=== PATIENT | female | born 1980 | race Caucasian/White ===

== ENCOUNTER → 2021-07-23 10:03 | Outpatient (CLI) | payer OTHER, SELFPAY ==
[2021-07-23 20:43] LABS: SARS-CoV-2 RNA PCR Positive
== END ==
PROVIDERS: PCP Nurse Practitioner Family; Visit Provider Nurse Practitioner Family
DX: U07.1 COVID-19 (principal); R19.7 Diarrhea, unspecified
CPT/HCPCS: C9803; U0003; U0005

== ENCOUNTER 2021-07-27 11:46 | Emergency (ER) | payer OTHER, SELFPAY ==
--- NOTE | ~2021-07-27 | XR_ITS ---
EXAMINATION: XR chest 1V portable DATE: 07/27/2021 15:45 INDICATION: Shortness of breath. TECHNIQUE: A single frontal view of the chest was obtained. COMPARISON: None. FINDINGS: The chest demonstrates clear lungs without pneumonia, pleural effusion, or pneumothorax. Th e heart size is normal. IMPRESSION: 1. No acute cardiopulmonary disease. Reviewed, dictated and finalized at location A. [employer]
[2021-07-27 11:51] VITALS: BP 145/71; PULSE 84; RESP 18; TEMP 36.8; O2SAT 100
[2021-07-27 14:02] VITALS: BP 125/61; PULSE 99; RESP 18; TEMP 37.3; O2SAT 100
[2021-07-27 15:20] VITALS: BP 146/91; PULSE 102; RESP 18; O2SAT 100
--- NOTE | 2021-07-27 15:29 | ECG_ITS ---
Measurements Intervals [place] Rate: 99 P: 46 OR: 96 QRS: 81 QRSD: 106 T: -8 QT: 329 QTc: 422 Interpretive Statements SINUS RHYTHM WITH SHORT OR INTERVAL INCOMPLETE RIGHT BUNDLE BRANCH BLOCK ST-T WAVE ABNORMALITY IN INFERIOR LEADS- CONSIDER ISCHEMIA ABNORMAL ECG Electronically Signed On 07-27-2021 16:11:37 SHOULDER PUNCHER by Hakan Melgar D.O.
[2021-07-27] MEDS: SODIUM CHLORIDE 0.9% IV 1,000 ML 999 ML IV CONT (15:57)
[2021-07-27 16:05] LABS: Basophils Percent Auto 0.3 % (0.2-1.2); Eosinophils Percent Auto 0.1 % (0-4.4); Hematocrit 42.6 % (37.0-47.0); Hemoglobin 14.7 g/dL (12.0-15.0); Immature Granulocyte Absolute 0.03 K/mm3 (0.00-0.031); Immature Granulocyte Percent A 0.3 % (0-0.5); Lymphocytes Absolute Auto 1.94 K/mm3 (0.9-3.2); Mean Corpuscular HGB Conc 34.5 g/dl (32-36); Mean Corpuscular Hemoglobin 31.3 pg (26-34); Mean Corpuscular Volume 90.6 fl (80-100); Mean Platelet Volume 10.2 fl (7.4-10.4); Monocytes Absolute Auto 0.5 K/mm3 (0.1-0.6); Monocytes Percent Auto 4.7 % (2.6-8.5); Neutrophils Absolute Auto 8.2 K/mm3 (1.3-6.7); Neutrophils Percent Auto 76.6 % (45.5-73.1); Platelet Count Result 326 k/mm3 (150-375); Red Cell Distribution Width 11.8 % (11.5-14.5); White Blood Count 10.8 K/mm3 (4.5-10.0)
[2021-07-27 16:16] LABS: Alanine Aminotransferase 20 U/L (4-35); Alkaline Phosphatase 59 U/L (38-126); Anion Gap 14 mmol/L (8-16); Aspartate Amino Transferase 27 U/L (14-36); Bilirubin,Total 0.8 mg/dL (0.2-1.3); Blood Urea Nitrogen 6 mg/dL (7-17); Calcium 10.1 mg/dL (8.4-10.2); Carbon Dioxide 18 mmol/L (22-30); Chloride 104 mmol/L (98-107); Estimated CRCL calculation 80 ml/min; Estimated Glomerular Filt Rate > 60; Glucose 123 mg/dL (65-110); Potassium 3.6 mmol/L (3.4-5.0); Sodium 136 mmol/L (137-145)
[2021-07-27 16:18] LABS: D Dimer 0.47 ug/mL (<0.48)
[2021-07-27 16:27] LABS: Troponin I < 0.012 ng/mL (0.000-0.034)
[2021-07-27] MEDS: KETOROLAC 15 MG/ML VIAL (*BKC) IV PUSH (16:41)
--- NOTE | 2021-07-27 16:44 | ED.GENADULT ---
HPI - General Adult General Chief complaint: Shortness of Breath/Dyspnea Stated complaint: dizzy/sob Time Seen by Provider: 07/27/21 15:30 Source: patient Mode of arrival: ambulatory Limitations: no limitations History of Present Illness HPI narrative: Patient presents with chief complaint of chest pain over the past week. Patient reports that she tested positive for Covid on July 23. Patient reports that she has developed some chest pressure and feelings of shortness of breath with exertion. Patient denies worsening of pain when she takes a deep breath. Patient reports that she has been in contact with her primary care and instructed her to present to the emergency department for evaluation. Patient states that she has been without her taste and smell for a week as well. Patient denies fevers, chills, vomiting. Patient denies history of heart attack or stroke. Patient denies shortness of breath at this time. Related Data Home Medications Medication Instructions Recorded Confirmed No Home Medications 07/27/21 07/27/21 Allergies Allergy/AdvReac Type Severity Reaction Status Date / Time No Known Allergies Allergy Verified 07/27/21 15:20 Review of Systems Review of Systems: CONSTITUTIONAL: Denies fever, chills, or sweats. EYES: Reports loss of taste and smell denies visual changes, redness, or discharge. ENT: Denies rhinorrhea, congestion, sore throat, or otalgia. CARDIOVASCULAR: Reports chest pressure denies palpitations, or edema. RESPIRATORY: Reports cough and dyspnea on exertion GASTROINTESTINAL: Denies abdominal pain, nausea, vomiting, or diarrhea. GENITOURINARY: Denies dysuria or hematuria. SKIN: Denies rash or itching. MUSCULOSKELETAL: Denies back pain, joint pain, or myalgia. NEUROLOGIC: Denies headache, numbness, dizziness, or weakness. PSYCHIATRIC: Denies anxiety or depression. Course Vital Signs Vital signs: Vital Signs Temperature 98.3 F 07/27/21 11:51 Pulse Rate 84 07/27/21 11:51 Respiratory Rate 18 07/27/21 11:51 Blood Pressure 145/71 H 07/27/21 11:51 Pulse Oximetry 100 07/27/21 11:51 Temperature 99.2 F 07/27/21 14:02 Pulse Rate 102 H 07/27/21 15:20 Respiratory Rate 18 07/27/21 15:20 Blood Pressure 146/91 H 07/27/21 15:20 Pulse Oximetry 100 07/27/21 15:20 Medical Decision Making MDM Narrative Medical decision making narrative: Patient has not having any acute changes to her chest pain. Patient given a liter of fluids for hydration. Patient given Toradol to help with discomfort. Patient vitals are stable. Patient not hypoxic or toxic. Patient tested positive presently for Covid. Patient D-dimer is negative. ekg does not show [place]. Patient's troponin are negative. Patient instructed to follow-up with her primary care for further investigations or symptoms. Patient strict to return to emergency department should she develop any emergent symptoms. Vital Signs Vital Signs: Vital Signs Temperature 98.3 F 07/27/21 11:51 Pulse Rate 84 07/27/21 11:51 Respiratory Rate 18 07/27/21 11:51 Blood Pressure 145/71 H 07/27/21 11:51 Pulse Oximetry 100 07/27/21 11:51 Temperature 99.2 F 07/27/21 14:02 Pulse Rate 102 H 07/27/21 15:20 Respiratory Rate 18 07/27/21 15:20 Blood Pressure 146/91 H 07/27/21 15:20 Pulse Oximetry 100 07/27/21 15:20 Lab Data Result diagrams: 07/27/21 15:58 07/27/21 15:58 Labs: Lab Results 07/27/21 07/27/21 07/27/21 Range/Units 15:58 15:58 15:58 WBC 10.8 H (4.5-10.0) K/mm3 RBC 4.70 (4.2-5.4) M/mm3 Hgb 14.7 (12.0-15.0) g/dL Hct 42.6 (37.0-47.0) % MCV 90.6 (80-100) fl MCH 31.3 (26-34) pg MCHC 34.5 (32-36) g/dl RDW 11.8 (11.5-14.5) % Plt Count 326 (150-375) k/mm3 MPV 10.2 (7.4-10.4) fl Immature Gran % (Auto) 0.3 (0-0.5) % Neut % (Auto) 76.6 H (45.5-73.1) % Lymph % (Auto) 18.0 L (18.3-44.2) % [facility] % (Auto)
== END 2021-07-27 17:29 | disposition home or self-care (01) ==
PROVIDERS: Physician Assistant; Emergency Provider Emergency Medicine; PCP Internal Medicine
DX: U07.1 COVID-19 (principal); I45.10 Unspecified right bundle-branch block; R94.31 Abnormal electrocardiogram [ECG] [EKG]
CPT/HCPCS: 36415; 71045; 80053; 84484; 85025; 85380; 93005; 96361; 96374; 99284; J1885; J7030